=== PATIENT | female | born 1985 | race Caucasian/White ===

== ENCOUNTER 2025-03-17 23:17 | Emergency (ER) | payer OTHER, SELFPAY ==
--- OUTSIDE RECORDS SUMMARY | 2025-03-17 23:19 | XMS_ITS | Clinical Summary ---
Author Organization [facility] Address [address] [place] [address] Phone Care Team Providers Care Recreation Instructor Name Role Phone Provider, Unknown Primary Care Provider Unavaila ble Social History Tobacco Use Types Packs/Day Years Used Date Smoking Tobacco: Never Assessed Comments Unknown Sex and Gender Information Value Date Recorded Sex Assigned at Not on file Legal Sex Female 9:43 PM CDT Gender Identity Not on file Sexual Orientation Not on file Plan of Treatment Not on file Care Teams Recreation Instructor Relationship Specialty Start Date End Date Provider, Unknown UNKNOWN PCP - General 02/25/17
--- NOTE | 2025-03-17 23:36 | ED.FEMALEGU ---
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 Reports ongoing over the last 4 days. Denies fevers or drainage. Related Data Allergies Allergy/AdvReac Type Severity Reaction Status Date / Time No Known Allergies Allergy Unverified 12/09/16 01:33 Review of Systems Review of Systems: CONSTITUTIONAL: Denies fever SKIN: Reports redness and swelling All systems reviewed & are unremarkable except as noted in HPI and below PMFSH Past Medical History Medical History (Updated 03/18/25 @ 01:09 by Malaika Griggs PA-C) No active medical problems Social History Social History (Updated 03/17/25 @ 23:38 by Malaika Griggs PA-C) Smoking status: Current every day smoker Exam Narrative: GENERAL: Well-appearing, well-nourished, and in no acute distress. HEAD: Normocephalic, atraumatic. EYES: EOMI. EXTREMITIES: Normal range of motion. No edema. SKIN: Warm, dry, no rash. NEURO: No focal deficits. Alert and oriented x3. PSYCH: Normal mood and affect FEMALE GENITAL: Left labia majora with edema and erythema with central fluctuance Course Course Emergency Course: Patient agrees with plan of care Vital Signs Vital signs: Vital Signs Temperature 98.6 F 03/18/25 00:02 Pulse Rate 72 03/18/25 00:02 Respiratory Rate 14 03/18/25 00:02 Blood Pressure 129/73 03/18/25 00:02 Pulse Oximetry 100 03/18/25 00:02 Oxygen Delivery Room Air 03/18/25 00:02 Temperature 98.6 F 03/18/25 00:02 Pulse Rate 72 03/18/25 00:02 Respiratory Rate 14 03/18/25 00:02 Blood Pressure 129/73 03/18/25 00:02 Pulse Oximetry 100 03/18/25 00:02 Oxygen Delivery Room Air 03/18/25 00:02 Procedures Abscess I/D other: Date of Incision: 03/18/25 Time of Incision: 01:12 Side (if applicable): left Local Anesthetic: lidocaine 1% Amount of anesthesia used (mL): 3 Technique: incised with #11 blade Irrigation: Yes Packing used?: none I&D Results: Pus and Blood MDM - Female Genitourinary MDM Narrative Medical decision making narrative: Patient presents to the ER for labial abscess. She is afebrile and nontoxic appearing. Abscess was successfully drained. She will be started on oral antibiotics. Given first dose in the ED. Wound culture was sent. 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 She was given strict return precautions Differential Diagnosis Differential diagnosis: Likely cyst of Bartholin's gland and other (abscess) Critical Care Time Critical Care Time Critical Care Time: No Discharge Plan Discharge Clinical Impression: Abscess of labia Patient Disposition: Home Condition: Stable Instructions: Antibiotic Form, Abscess (ED) Additional Instructions: Return if symptoms worsen or concerns: any increase in redness, swelling, pain or fever over 101 Take antibiotics as directed. Clean wound with mild soapy water. Apply antibiotic ointment and clean dressing at least twice daily. Warm compresses 3 times a day for 20 minutes each Follow up with your non cdl driver Patient Language: Nigerien Prescriptions: New sulfamethoxazole-trimethoprim 800-160 mg tablet 1 tablet PO Q12H 7 Days Qty: 14 0RF hydrocodone-acetaminophen 5-325 mg tablet 1 tablet PO Q6H PRN (Reason: pain) Qty: 7 0RF Follow-up/Referrals: Jeison Cooper MD [Physician] - UNKNOWN,DOCTOR [Non-Staff] -
--- OUTSIDE RECORDS SUMMARY | 2025-03-17 23:41 | XMS_ITS | Clinical Summary ---
Author Organization [facility] Address [address] [place] [address] Phone Care Team Providers Care Shot Bagger Name Role Phone Provider, Unknown Primary Care Provider Unavaila ble Social History Tobacco Use Types Packs/Day Years Used Date Smoking Tobacco: Never Assessed Comments Unknown Sex and Gender Information Value Date Recorded Sex Assigned at Not on file Legal Sex Female 9:43 PM CDT Gender Identity Not on file Sexual Orientation Not on file Plan of Treatment Not on file Care Teams Shot Bagger Relationship Specialty Start Date End Date Provider, Unknown UNKNOWN PCP - General 02/25/17
[2025-03-17] MEDS: LIDOCAINE, EPINEPHRINE, TETRACAINE VISCOUS SOLN 3 ML TOPICAL (23:56)
[2025-03-18 00:02] VITALS: BP 129/73; PULSE 72; RESP 14; TEMP 37; O2SAT 100
--- NOTE | 2025-03-18 00:25 | PC.NURSE ---
chelly foster at bedside to drain patient cyst on left sided labia
[2025-03-18] MEDS: HYDROcodone/acetaminophen (*CRX) 5-325 MG TABLET 1 TAB PO (00:31)
[2025-03-18] MEDS: LORazepam (*CRX) 0.5 MG TABLET PO (00:31)
[2025-03-18 01:30] LABS: BEDSIDEPREGUCG Negative (Negative)
[2025-03-18] MEDS: SULFAMETHOXAZOLE/TRIMETHOPRIM 800/160 MG DS TABLET 1 TAB PO (01:32)
== END 2025-03-18 01:37 | disposition home or self-care (01) ==
PROVIDERS: Emergency Provider Physician Assistant
DX: N76.4 Abscess of vulva (principal); F17.200 Nicotine dependence, unspecified, uncomplicated
CPT/HCPCS: 56405; 81025; 87070; 87075; 87181; 87205; 99283; A9270